=== PATIENT | female | born 1990 | race Caucasian/White ===

== ENCOUNTER 2017-03-03 01:30 | Emergency (ER) | payer SELFPAY ==
[~2017-03-03] VITALS: Ht 154.9 cm; Wt 61.2 kg
[~2017-03-03 01:30] MED LIST: CODE-54 PO; FERR325C PO; IBP600T1 PO; NAPR-243 PO; ONDAN4ODT PO; OXYC10TA63; PREN1TAB71 PO
--- OUTSIDE RECORDS SUMMARY | 2017-03-03 01:39 | XMS REPORT ---
Author Author LZIZETH SMALL Organization [facility] Address [address] [place] [address] Care Team Providers Care Family Court Counsellor Name Role Phone JEANCARLOS SMALLNETTE Unavailable PROBLEMS Type Condition ICD9-CM Code ZME07-IS Code Onset Dates Condition Status SNOMED Code Problem Cannabis use disorder, mild, abuse F12.10 Active 54514758 Problem Alcohol use disorder, moderate, dependence F10.20 Active 979084439 Problem Moderate episode of recurrent major depressive disorder F33.1 Active 504688254 Problem Anxiety state, unspecified F41.1 Active [id number] ALLERGIES Substance Reaction Event Type Date Status N.K.D.A. Unknown Non Drug Allergy Jun, Unknown SOCIAL HISTORY No smoking Hx information available PLAN OF CARE Activity Details Follow Up 3 Weeks Reason:lab and depresion VITAL SIGNS Weight 133 lbs 2016-06-27 Temperature 97.3 degrees Fahrenheit 2016-06-27 Heart Rate 84 bpm 2016-06-27 Respiratory Rate 18 2016-06-27 Blood pressure systolic 126 mmHg 2016-06-27 Blood pressure diastolic 76 mmHg 2016-06-27 MEDICATIONS Medication Instructions Dosage Frequency Start Date End Date Duration Status Clonidine HCl 0.1 MG Orally Once a day 1 tablet at bedtime 24h Jun, 30 day(s) Active Celexa 20 mg Orally Once a day 1 tablet 24h Jun, 30 day(s) Active RESULTS No Results PROCEDURES Procedure Date Ordered Related Diagnosis Body Site Office Visit, Est Pt., Level 3 Jun 27, 2016 IMMUNIZATIONS No Known Immunizations
--- OUTSIDE RECORDS SUMMARY | 2017-03-03 01:39 | XMS REPORT ---
Author Author JOSE F YOUNG Organization [facility] Address [address] [place] [address] Care Team Providers Care Nurse Transition Name Role Phone JOSE F YOUNG Unavailable PROBLEMS Type Condition ICD9-CM Code URW75-HN Code Onset Dates Condition Status SNOMED Code Problem Alcohol use disorder, moderate, dependence F10.20 Active 903167344 Problem Cannabis use disorder, mild, abuse F12.10 Active 74378531 Problem Moderate episode of recurrent major depressive disorder F33.1 Active 422900455 Problem Anxiety state, unspecified F41.1 Active [id number] ALLERGIES Unknown Allergies SOCIAL HISTORY No smoking Hx information available PLAN OF CARE Activity Details Follow Up prn Reason:anxiety VITAL SIGNS MEDICATIONS Unknown Medications RESULTS No Results PROCEDURES Procedure Date Ordered Related Diagnosis Body Site Psychotherapy, patient &/family, 30 minutes, established patient Jun 04, 2016 IMMUNIZATIONS No Known Immunizations
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
[2017-03-03] MEDS ORDERED: IBUP-1780 PO (02:50)
[2017-03-03] MEDS ORDERED: IBUPROFEN 800 MG (MOTRIN) TAB PO ONE (03:00)
[2017-03-03 03:01] VITALS: BP 138/99
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
== END 2017-03-03 03:01 | disposition home or self-care (01) ==
LOC: EDUNIT# 01:30 → ER 01:34
DX: S16.1XXA Strain of muscle, fascia and tendon at neck level, initial encounter; R68.84 Jaw pain; F41.9 Anxiety disorder, unspecified; Y09 Assault by unspecified means; F32.9 Major depressive disorder, single episode, unspecified
CPT/HCPCS: 70486; 72125; 99283

== ENCOUNTER 2019-05-24 02:09 | Inpatient (IN) | payer SELFPAY ==
[~2019-05-24] VITALS: Ht 157.9 cm; Wt 61.3 kg
[2019-05-24] VITALS (12 sets, daily range): BP systolic 120–175; BP diastolic 81–126
[~2019-05-24 02:09] MED LIST changes: +IBUP-1780 PO
[2019-05-24 02:42] LABS: BASOPHILS # (AUTO) 0.1 10^3/uL (0.0-0.1); BASOPHILS % (AUTO) 1 % (0-10); EOSINOPHILS % (AUTO) 0 % (0-10); HEMATOCRIT 43 % (35-52); HEMOGLOBIN 14.9 G/DL (11.5-16.0); LYMPHOCYTES # (AUTO) 2.7 X 10^3 (1.0-4.0); LYMPHOCYTES % (AUTO) 23 % (12-44); MEAN CORPUSCULAR HEMOGLOBIN 31 PG (25-34); MEAN CORPUSCULAR HGB CONC 34 G/DL (32-36); MEAN CORPUSCULAR VOLUME 89 FL (80-99); MEAN PLATELET VOLUME 10.5 FL (7.4-10.4); MONOCYTES # (AUTO) 0.7 X 10^3 (0.0-1.0); MONOCYTES % (AUTO) 6 % (0-12); NEUTROPHILS # (AUTO) 8.3 X 10^3 (1.8-7.8); NEUTROPHILS % (AUTO) 71 % (42-75); PLATELET COUNT 369 10^3/uL (130-400); RED CELL DISTRIBUTION WIDTH 12.9 % (10.0-14.5); WHITE BLOOD COUNT 11.7 10^3/uL (4.3-11.0)
[2019-05-24] MEDS ORDERED: LORazepam INJ 2 MG/ML (ATIVAN) VIAL IVP ONE (02:45)
[2019-05-24 02:53] LABS: INR 0.9 (0.8-1.4); PROTHROMBIN TIME PATIENT 12.6 SEC (12.2-14.7)
[2019-05-24 03:01] LABS: ALANINE AMINOTRANSFERASE 26 U/L (0-55); ALBUMIN 4.6 GM/DL (3.2-4.5); ALKALINE PHOSPHATASE 95 U/L (40-136); BILIRUBIN,TOTAL 0.5 MG/DL (0.1-1.0); BUN/CREATININE RATIO 12; CALCIUM 9.6 MG/DL (8.5-10.1); CARBON DIOXIDE 21 MMOL/L (21-32); CHLORIDE 104 MMOL/L (98-107); CREATININE SERUM 0.85 MG/DL (0.60-1.30); GFR ESTIMATED > 60; GLUCOSE 101 MG/DL (70-105); MAGNESIUM 1.8 MG/DL (1.6-2.4); POTASSIUM 3.4 MMOL/L (3.6-5.0); SODIUM 141 MMOL/L (135-145); TOTAL PROTEIN 7.3 GM/DL (6.4-8.2)
[2019-05-24 03:10] LABS: AMPHETAMINE SCREEN, URINE NEGATIVE (NEGATIVE); BARBITURATE SCREEN URINE NEGATIVE (NEGATIVE); BENZODIAZEPINES SCREEN URINE POSITIVE (NEGATIVE); CANNABINOID SCREEN, URINE POSITIVE (NEGATIVE); COCAINE SCREEN URINE NEGATIVE (NEGATIVE); METHADONE STAT NEGATIVE (NEGATIVE); METHAMPHETAMINE SCREEN URINE S NEGATIVE (NEGATIVE); OPIATE SCREEN URINE NEGATIVE (NEGATIVE); OXYCODONE STAT NEGATIVE (NEGATIVE); PROPOXYPHENE STAT NEGATIVE (NEGATIVE); TRICYCLIC ANTIDEPRESSANTS SCRE NEGATIVE (NEGATIVE)
[2019-05-24] MEDS ORDERED: ASPIRIN 81 MG CHEW (CHILDREN'S ASA) PO ONE (03:30)
[2019-05-24] MEDS: NITROGLYCERIN 0.4 MG SL TABS BTL 25'S SL PRN ×2 (03:54→04:07)
--- NOTE | 2019-05-24 04:06 | NUR ---
Pain re-assessed at this time. Pt reports her pain is resolved after 1 NTG
[2019-05-24] MEDS ORDERED: meTOprolol 5 MG/5 ML (LOPRESSOR) VIAL IV ONE (04:45)
--- NOTE | 2019-05-24 04:50 | ED Chest Pain ---
General Chief Complaint: Chest Pain Stated Complaint: CP, ARM & BACK PAIN,LIGHT HEADED,DIZZY Nursing Triage Note: Pt ambulates to [facility] 5 with c/o medial chest pain that radiates to upper back, dizziness, N/V that started approx 2330 last night. Pt is in sinus rhythm on arrival. Pt denies any SOB, fever/chills. Pt does report smoking marijuana tonight. Nursing Sepsis Screen: No Definite Risk Source: patient Exam Limitations: no limitations History of Present Illness Date Seen by Provider: May 24, 2019 Time Seen by Provider: 02:21 Initial Comments This 28-year-old young lady presents to the emergency room with complaints of central chest pain radiating down her arms and into her back that started around midnight. She describes the pain as a tightness and burning. She denies any other prior episodes. She also reports an episode of emesis shortly after symptoms started. She admits to drinking alcohol around 20:00 and smoking marijuana last night. She denies any known cardiopulmonary problems. She has markedly hypertensive on assessment. She denies any history of hypertension. Allergies and Home Medications Allergies Coded Allergies: No Known Drug Allergies (Unverified , 11/20/10) Home Medications Ibuprofen 800 Mg Tablet, 800 MG PO Q8H PRN for PAIN Prescribed by: DASH GUZMÁN on 03/03/17 0250 Patient Home Medication List Home Medication List Reviewed: Yes Review of Systems Review of Systems Constitutional: no symptoms reported EENTM: No Symptoms Reported Respiratory: No Symptoms Reported Cardiovascular: See HPI Gastrointestinal: See HPI Genitourinary: No Symptoms Reported Musculoskeletal: no symptoms reported Skin: no symptoms reported Psychiatric/Neurological: No Symptoms Reported Endocrine: No Symptoms Reported Hematologic/Lymphatic: No Symptoms Reported Past Ootedmf-Hazcfp-Vjbmxp Hx Past Med/Social Hx: Reviewed and Corrections made Patient Social History Alcohol Use: Occasionally Uses Number of Drinks Today: 0 Alcohol Beverage of Choice: Whiskey Recreational Drug Use: Yes (THC) Smoking Status: Never a Smoker Recent Foreign Travel: No Contact w/Someone Who Travel: No Recent Infectious Disease Expo: No Recent Hopitalizations: No Physical Abuse: No Sexual Abuse: No Mistreated: No Fear: No Immunizations Up To Date Tetanus Booster (TDap): Less than 5yrs Seasonal Allergies Seasonal Allergies: No Past Medical History Surgeries: No Respiratory: No Cardiac: No Neurological: No : No Last Menstrual Period: May 09, 2019 Reproductive Disorders: No Female Reproductive Disorders: Denies Genitourinary: No Gastrointestinal: No Musculoskeletal: No Endocrine: No HEENT: No Cancer: No Psychosocial: Yes Anxiety, Depression Integumentary: No Blood Disorders: No Adverse Reaction/Blood Tranf: No Family Medical History Heart Disease (in her grandparents) Physical Exam Vital Signs Vital Signs - First Documented 05/24/19 02:26 Temp 36.6 Pulse 74 Resp 20 B/P (MAP) 180/120 (140) Pulse Ox 99 O2 Delivery Room Air Capillary Refill : Less Than 3 Seconds Height, Weight, BMI Height: 5'1.00" Weight: 135lbs. oz. 61.375547wd; 26.00 BMI Method:Stated General Appearance: No Apparent Distress, WD/WN, Anxious (mildly) HEENT: PERRL/EOMI, Normal ENT Inspection Neck: Normal Inspection Respiratory: Chest Non Tender, Lungs Clear, Normal Breath Sounds, No Accessory Muscle Use, No Respiratory Distress Cardiovascular: Regular Rate, Rhythm, No Edema, No Murmur, Normal Peripheral Pulses Gastrointestinal: Normal Bowel Sounds, Non Tender, Soft Extremity: Normal Capillary Refill, Normal Inspection, Non Tender, No Calf Tenderness, No Pedal Edema Neurologic/Psychiatric: Alert, Oriented x3, No Motor/Sensory Deficits, head cleaning porter II- XII Norm as Tested, Other (mildly anxious) Skin: Normal Color, Warm/Dry Progress/Results/Core Measures Results/Orders Lab Results Laboratory Tests Test 05/24/19 02:24 05/24/19 02:52 05/24/19 04:45 Range/Units White Blood Count 11.7 H 4.3-11.0 10^3/uL Red Blood Count 4.86 4.35-5.85 10^6/uL Hemoglobin 14.9 11.5-16.0 G/DL Hematocrit 43 35-52 % Mean Corpuscular Volume 89 80-99 FL Mean Corpuscular Hemoglobin 31 25-34 PG Mean Corpuscular Hemoglobin Concent 34 32-36 G/DL Red Cell Distribution Width 12.9 10.0-14.5 % Platelet Count 369 130-400 10^3/uL Mean Platelet Volume 10.5 H 7.4-10.4 FL Neutrophils (%) (Auto) 71 42-75 % Lymphocytes (%) (Auto) 23 12-44 % Monocytes (%) (Auto) 6 0-12 % Eosinophils (%) (Auto) 0 0-10 % Basophils (%) (Auto) 1 0-10 % Neutrophils # (Auto) 8.3 H 1.8-7.8 X 10^3 Lymphocytes # (Auto) 2.7 1.0-4.0 X 10^3 Monocytes # (Auto) 0.7 0.0-1.0 X 10^3 Eosinophils # (Auto) 0.0 0.0-0.3 10^3/uL Basophils # (Auto) 0.1 0.0-0.1 10^3/uL Prothrombin Time 12.6 12.2-14.7 SEC INR Comment 0.9 0.8-1.4 Activated Partial Thromboplast Time 26 24-35 SEC Sodium Level 141 135-145 MMOL/L Potassium Level 3.4 L 3.6-5.0 MMOL/L Chloride Level 104 98-107 MMOL/L Carbon Dioxide Level 21 21-32 MMOL/L Anion Gap 16 H 5-14 MMOL/L Blood Urea Nitrogen 10 7-18 MG/DL Creatinine 0.85 0.60-1.30 MG/DL Estimat Glomerular Filtration Rate > 60 BUN/Creatinine Ratio 12 Glucose Level 101 70-105 MG/DL Calcium Level 9.6 8.5-10.1 MG/DL Corrected Calcium 8.5-10.1 MG/DL Magnesium Level 1.8 1.6-2.4 MG/DL Total Bilirubin 0.5 0.1-1.0 MG/DL Aspartate Amino Transf (AST/SGOT) 21 5-34 U/L Alanine Aminotransferase (ALT/SGPT) 26 0-55 U/L Alkaline Phosphatase 95 40-136 U/L Myoglobin 35.2 10.0-92.0 NG/ML Troponin I 0.337 *H <0.028 NG/ML Total Protein 7.3 6.4-8.2 GM/DL Albumin 4.6 H 3.2-4.5 GM/DL Serum Test, Qualitative NEGATIVE NEGATIVE Serum Alcohol < 10 <10 MG/DL Urine Opiates Screen NEGATIVE NEGATIVE Urine Oxycodone Screen NEGATIVE NEGATIVE Urine Methadone Screen NEGATIVE NEGATIVE Urine Propoxyphene Screen NEGATIVE NEGATIVE Urine Barbiturates Screen NEGATIVE NEGATIVE Ur Tricyclic Antidepressants Screen NEGATIVE NEGATIVE Urine Phencyclidine Screen NEGATIVE NEGATIVE Urine Amphetamines Screen NEGATIVE NEGATIVE Urine Methamphetamines Screen NEGATIVE NEGATIVE Urine Benzodiazepines Screen POSITIVE H NEGATIVE Urine Cocaine Screen NEGATIVE NEGATIVE Urine Cannabinoids Screen POSITIVE H NEGATIVE My Orders Orders - BLAYNE DE LEON MD Cbc With Automated Diff (05/24/19 02:21) Magnesium (05/24/19 02:21) Ekg Tracing (05/24/19 02:21) Comprehensive Metabolic Panel (05/24/19 02:21) Myoglobin Serum (05/24/19 02:21) Protime With Inr (05/24/19 02:21) Partial Thromboplastin Time (05/24/19 02:21) O2 (05/24/19 02:21) Monitor-Rhythm Ecg Trace Only (05/24/19 02:21) Lipid Panel (05/25/19 06:00) Ed Iv/Invasive Line Start (05/24/19 02:21) Chest Pa/Lat (2 View) (05/24/19 02:21) Hcg,Qualitative Serum (05/24/19 02:21) Troponin I (05/24/19 02:21) Drug Screen Stat (Urine) (05/24/19 02:32) Alcohol (05/24/19 02:21) Lorazepam Injection (Ativan Injection) (05/24/19 02:45) Troponin I (05/24/19 04:30) Aspirin Chewable Tablet (Baby Aspirin Ch (05/24/19 03:30) Nitroglycerin 0.4 Mg Btl 25's (Nitrostat (05/24/19 03:30) Metoprolol Tartrate Injection (Lopressor (05/24/19 04:45) Lipid Panel (05/24/19 04:45) Alcohol (05/24/19 04:54) Medications Given in ED Current Medications Medications Dose Ordered Sig/Bryan Route Start Time Stop Time Status Last Admin Dose Admin Aspirin 324 mg ONCE ONCE PO 05/24/19 03:30 05/24/19 03:31 DC 05/24/19 03:25 324 MG Lorazepam 0.5 mg ONCE ONCE IVP 05/24/19 02:45 05/24/19 02:46 DC 05/24/19 02:57 0.5 MG Metoprolol Tartrate 5 mg ONCE ONCE IV 05/24/19 04:45 05/24/19 04:46 DC 05/24/19 04:41 5 MG Nitroglycerin 0.4 mg UD PRN SL 05/24/19 03:30 05/24/19 04:07 0.4 MG Vital Signs/I&O 05/24/19 05/24/19 02:26 02:32 Temp 36.6 Pulse 74 Resp 20 B/P (MAP) 180/120 (140) Pulse Ox 99 O2 Delivery Room Air Room Air Blood Pressure Mean: 140 POS Progress Progress Note : Time: 04:49 Progress Note Patient was given Ativan for anxiety and hypertension. This brought her pain down from 7/10 to 5/10. She was then given aspirin and nitroglycerin. Nitroglycerin completely relieved her pain. She had a slight elevation in troponin. A 2 hour troponin was ordered. Case was discussed with Dr. Avila who agrees admission is appropriate. Nitroglycerin significantly improved her blood pressure. Dr. Avila requested Lopressor be administered. Initial ECG Impression Date: May 24, 2019 Initial ECG Impression Time: 02:17 Initial ECG Rate: 77 Initial ECG Rhythm: Normal Sinus Initial ECG Intervals: Normal Initial ECG Impression: Normal Comment Normal sinus rhythm with no ST elevation or depression. No abnormal intervals or axis deviation. Diagnostic Imaging Diagonstic Imaging: Xray Plain Films/CT/US/NM/MRI: chest Comments Two-view chest x-ray viewed by me. Report not yet available. No acute ab normalities appreciated. Departure Communication (Admissions) Time/Spoke to Admitting Phy: 04:40 Dr. Prince Time/Spoke to Consulting Phy: 04:30 Dr. Avila Impression Primary Impression: Chest pain Qualified Codes: R07.9 - Chest pain, unspecified Additional Impressions: Elevated troponin Hypertension Qualified Codes: I10 - Essential (primary) hypertension Disposition: 09 ADMITTED INPATIENT Condition: Improved Admissions Decision to Admit Reason: Admit from ER (General) Decision to Admit/Date: May 24, 2019 Time/Decision to Admit Time: 04:30 Departure-Patient Inst. Referrals: [facility] (PCP/Family) Primary Care Physician BLAYNE DE LEON MD May 24, 2019 04:50 POS
[2019-05-24 05:09] LABS: CHOLESTEROL 145 MG/DL (< 200); HDL CHOLESTEROL 48 MG/DL (40-60); TRIGLYCERIDES 129 MG/DL (<150); VLDL CHOLESTEROL 26 MG/DL (5-40)
[2019-05-24] MEDS ORDERED: PATIENT MAY USE OWN MEDS, ALL PO SCH ×2 (05:45→08:00)
--- NOTE | 2019-05-24 05:58 | Diagnostic Imaging Report ---
INDICATION: Chest pain with radiation to the back. Dizziness nausea and vomiting.. TECHNIQUE: Two view chest 3:10 AM CORRELATION STUDY: 11/21/2010 FINDINGS: The heart size, mediastinal configuration and pulmonary vasculature are within normal limits. The lungs are clear with no consolidating infiltrate. There is no significant pleural effusion or pneumothorax. Visualized osseous structures are unremarkable. IMPRESSION: 1. Negative for acute abnormality of the chest. Dictated by: Dictated on workstation # [id number]
[2019-05-24] MEDS ORDERED: HEParin DRIP 25000 UNIT/500ML 500 ML IV ONE (06:09)
[2019-05-24] MEDS ORDERED: HEParin 1000 UNIT/ML (10ML VIAL) FOR BOLUS IV ONE (06:09)
[2019-05-24] MEDS ORDERED: CATHETER FLUSH 10 ML SYR IV PRN (06:15)
[2019-05-24] MEDS ORDERED: NITROGLYCERIN 0.4 MG SL TABS BTL 25'S SL PRN (06:15)
[2019-05-24] MEDS ORDERED: ONDANSETRON 4 MG/2 ML (SDV) Z0FRAN IV PRN (06:15)
[2019-05-24] MEDS ORDERED: morphine INJ 4 MG/ML 1 ML (VIAL/SYRINGE) IV PRN (06:15)
[2019-05-24] MEDS ORDERED: LIDOCAINE 1% INJ 20 ML 20 ML VIAL ONE ×2 (06:56→06:59)
[2019-05-24] MEDS ORDERED: NITRO DRIP 25000 MCG/D5W 0 ML IV ONE (06:56)
[2019-05-24] MEDS ORDERED: HEParin 1000 UNIT/ML (10ML VIAL) FOR BOLUS ONE (06:56)
[2019-05-24] MEDS ORDERED: HEParin (CATH LAB) 2,000 ML IV ONE (06:56)
[2019-05-24] MEDS ORDERED: MIDAZOLAM 5 MG/5 ML (VERSED) VIAL ONE (06:56)
[2019-05-24] MEDS ORDERED: fentaNYL INJECTION 100 MCG/2 ML AMP ONE (06:56)
--- NOTE | 2019-05-24 07:11 | Consultation-Cardiology ---
HPI-Cardiology Cardiology Consultation Date of Consultation 05/24/19 Date of Admission Time Seen by Provider: 07:07 Indication: Chest pain HPI 28 years old lady with family history of heart disease, was in her usual state of health when she started having retrosternal chest pain radiating to both shoulder done to both arms associated with nausea and vomiting once then came into the emergency room with severely hypertensive. Given sublingual nitroglycerin with relief of her chest pain. No further episodes of chest pain were reported her initial troponin was mildly elevated second troponin was significantly higher. Denied any similar episode in the past. No previous cardiac history. Home Medications & Allergies Allergies: Coded Allergies: No Known Drug Allergies (Unverified , 11/20/10) Home Medication List Reviewed: Yes FLB-Uzbozx-Kwispb Hx Patient Social History Marital Status: Employed/Student: employed Alcohol Use: Occasionally Uses Recreational Drug Use: Yes (THC) Smoking Status: Never a Smoker Former smoker/When Quit: Jun 23, 2012 Recent Foreign Travel: No Recent Infectious Disease Expo: No Recent Hopitalizations: No Immunizations Up To Date Tetanus Booster (TDap): Less than 5yrs Past Medical History No significant past history Family Medical History Significant Family History: Heart Disease (in her grandparents) Family Medical Hx Family history of stroke and hypertension Review of Systems-General Review of Systems Constitutional: no symptoms reported, see HPI EENTM: see HPI, no symptoms reported Respiratory: no symptoms reported, see HPI Cardiovascular: see HPI Gastrointestinal: no symptoms reported, see HPI Genitourinary: no symptoms reported, see HPI Musculoskeletal: no symptoms reported, see HPI Skin: no symptoms reported, see HPI Psychiatric/Neurological: No Symptoms Reported, See HPI Reviewed Test Results Reviewed Test Results Lab Laboratory Tests Test 05/24/19 02:24 05/24/19 02:52 05/24/19 04:45 Range/Units White Blood Count 11.7 H 4.3-11.0 10^3/uL Red Blood Count 4.86 4.35-5.85 10^6/uL Hemoglobin 14.9 11.5-16.0 G/DL Hematocrit 43 35-52 % Mean Corpuscular Volume 89 80-99 FL Mean Corpuscular Hemoglobin 31 25-34 PG Mean Corpuscular Hemoglobin Concent 34 32-36 G/DL Red Cell Distribution Width 12.9 10.0-14.5 % Platelet Count 369 130-400 10^3/uL Mean Platelet Volume 10.5 H 7.4-10.4 FL Neutrophils (%) (Auto) 71 42-75 % Lymphocytes (%) (Auto) 23 12-44 % Monocytes (%) (Auto) 6 0-12 % Eosinophils (%) (Auto) 0 0-10 % Basophils (%) (Auto) 1 0-10 % Neutrophils # (Auto) 8.3 H 1.8-7.8 X 10^3 Lymphocytes # (Auto) 2.7 1.0-4.0 X 10^3 Monocytes # (Auto) 0.7 0.0-1.0 X 10^3 Eosinophils # (Auto) 0.0 0.0-0.3 10^3/uL Basophils # (Auto) 0.1 0.0-0.1 10^3/uL Prothrombin Time 12.6 12.2-14.7 SEC INR Comment 0.9 0.8-1.4 Activated Partial Thromboplast Time 26 24-35 SEC Sodium Level 141 135-145 MMOL/L Potassium Level 3.4 L 3.6-5.0 MMOL/L Chloride Level 104 98-107 MMOL/L Carbon Dioxide Level 21 21-32 MMOL/L Anion Gap 16 H 5-14 MMOL/L Blood Urea Nitrogen 10 7-18 MG/DL Creatinine 0.85 0.60-1.30 MG/DL Estimat Glomerular Filtration Rate > 60 BUN/Creatinine Ratio 12 Glucose Level 101 70-105 MG/DL Calcium Level 9.6 8.5-10.1 MG/DL Corrected Calcium 8.5-10.1 MG/DL Magnesium Level 1.8 1.6-2.4 MG/DL Total Bilirubin 0.5 0.1-1.0 MG/DL Aspartate Amino Transf (AST/SGOT) 21 5-34 U/L Alanine Aminotransferase (ALT/SGPT) 26 0-55 U/L Alkaline Phosphatase 95 40-136 U/L Myoglobin 35.2 10.0-92.0 NG/ML Troponin I 0.337 *H 1.102 *H <0.028 NG/ML Total Protein 7.3 6.4-8.2 GM/DL Albumin 4.6 H 3.2-4.5 GM/DL Serum Test, Qualitative NEGATIVE NEGATIVE Serum Alcohol < 10 < 10 <10 MG/DL Urine Opiates Screen NEGATIVE NEGATIVE Urine Oxycodone Screen NEGATIVE NEGATIVE Urine Methadone Screen NEGATIVE NEGATIVE Urine Propoxyphene Screen NEGATIVE NEGATIVE Urine Barbiturates Screen NEGATIVE NEGATIVE Ur Tricyclic Antidepressants Screen NEGATIVE NEGATIVE Urine Phencyclidine Screen NEGATIVE NEGATIVE Urine Amphetamines Screen NEGATIVE NEGATIVE Urine Methamphetamines Screen NEGATIVE NEGATIVE Urine Benzodiazepines Screen POSITIVE H NEGATIVE Urine Cocaine Screen NEGATIVE NEGATIVE Urine Cannabinoids Screen POSITIVE H NEGATIVE Triglycerides Level 129 <150 MG/DL Cholesterol Level 145 < 200 MG/DL LDL Cholesterol Direct 83 1-129 MG/DL VLDL Cholesterol 26 5-40 MG/DL HDL Cholesterol 48 40-60 MG/DL Physical Exam Physical Exam Vital Signs Vital Signs - First Documented 05/24/19 02:26 Temp 36.6 Pulse 74 Resp 20 B/P (MAP) 180/120 (140) Pulse Ox 99 O2 Delivery Room Air Capillary Refill : Less Than 3 Seconds Height, Weight, BMI Height: 5'1.00" Weight: 135lbs. oz. 61.643630dl; 24.58 BMI Method:Stated General Appearance: No Apparent Distress, WD/WN, Anxious (mildly) Eyes: Bilateral Eye Normal Inspection, Bilateral Eye PERRL, Bilateral Eye EOMI HEENT: PERRL/EOMI, Normal ENT Inspection Neck: Normal Inspection Respiratory: Chest Non Tender, Lungs Clear, Normal Breath Sounds, No Accessory Muscle Use, No Respiratory Distress Cardiovascular: Regular Rate, Rhythm, No Edema, No Murmur, Normal Peripheral Pulses Gastrointestinal: Normal Bowel Sounds, Non Tender, Soft Back: Normal Inspection, No CVA Tenderness, No Vertebral Tenderness Extremity: Normal Capillary Refill, Normal Inspection, Non Tender, No Calf Tenderness, No Pedal Edema Neurologic/Psychiatric: Alert, Oriented x3, No Motor/Sensory Deficits, methods analyst data processing II- XII Norm as Tested, Other (mildly anxious) Skin: Normal Color, Warm/Dry Lymphatic: No Adenopathy A/P-Cardiology Admission Diagnosis Unstable angina Non-ST elevation myocardial infarction Coronary artery disease Hypertension Assessment/Plan Unstable angina, non-ST elevation myocardial infarction, chest pain responsive to nitroglycerin, no acute EKG changes, elevated troponin first set was 0.33 second set 1.1. I will proceed with cardiac catheterization possible PTCA Severe hypertension, hypertensive urgency. We'll start beta blockers and monitor Family history of atherosclerosis Questionable hyperlipidemia I will evaluate lipid profile History of marijuana use. Educated on avoiding marijuana NURIA KIDD MD May 24, 2019 07:11 POS
--- NOTE | 2019-05-24 07:16 | Cardiac Procedure Note-CS/ASA ---
Pre-Procedure Note Pre-Op Procedure Note H&P Reviewed The H&P was reviewed, patient examined and no changes noted. Date H&P Reviewed: May 24, 2019 Time H&P Reviewed: 07:15 Conscious Sedation Pre-Proced Time 07:15 ASA Score 3 For ASA 3 and 4: Consider anesthesia and medical clearance. Also, for patients with a history of failed moderate sedation consider anesthesia. Airway Lungs Heart ASA score ASA 1: a normal healthy patient ASA 2: a patient with a mild systemic disease (mid diabetes, controlled hypertension, obesity x ASA 3: a patient with a severe systemic disease that limits activity (angina, COPD, prior Myocardial infarction) ASA 4: a patient with an incapacitating disease that is a constant threat to life (CHF, renal failure) ASA 5: a moribund patient not expected to survive 24 hrs. (ruptured aneurysm) ASA 6: a declared brain- patient whose organs are being harvested. For emergent operations, add the letter E after the classification Mallampati Classification Grade 3 Sedation Plan Analgesia, Amnesia, Plan communicated to team members, Discussed options with patient/fam, Discussed risks with patient/fam The patient is an appropriate candidate to undergo the planned procedure, sedation, and anesthesia. The patient immediately re-assessed prior to indication. NURIA KIDD MD May 24, 2019 07:16 POS
--- NOTE | 2019-05-24 07:25 | NUR ---
Patient off floor to dock or pier laborer at this time.
[2019-05-24] MEDS ORDERED: NS IV 1000 ML 1,000 ML ONE (07:29)
[2019-05-24] MEDS ORDERED: meTOprolol 5 MG/5 ML (LOPRESSOR) VIAL ONE (07:51)
--- NOTE | 2019-05-24 08:05 | Cardiac Cath Report ---
Cardiac Cath Report Physician (s)/Digital Media Analyst (s) Physician NURIA KIDD MD Pre-Procedure Diagnosis Pre-Procedure Diagnosis: NSTMI Post-Procedure Note Procedure Start Date: May 24, 2019 Name of Procedure: [facility] LV Gram Aortic arch angiogram Abdominal aortogram Findings/Procedure Note PROCEDURE NOTE: 28-year-old female admitted with acute chest pain, had elevation in troponin level, second troponin was more elevated. Has severe hypertension, I recomme nded cardiac catheterization, did coronary angiogram and left ventriculogram done a evaluated the aorta with the aortic arch angiogram abdominal aortogram due to the severe hypertension and elevated troponin and chest pain. After explaining the procedure to the patient, all pros and cons were explained, all questions were answered. The patient signed the consent and then she was placed on the cardiac catheterization laboratory. Groin was prepped SL fashion local anesthesia was used. Sheath placed in the right femoral artery. Alba right and left catheter were used to access the coronary system. Pigtail was used to access the left ventricular cavity. Left ventriculogram was done Aortic arch angiogram was done, abdominal aortogram was done At the end of the procedure the sheath was removed. Closure device was used FINDINGS: Hemodynamics LV 192/18, end-diastolic pressure of 18 Aorta 178/121 mean of 147 ANATOMY: Left Main is free of obstructive disease Left Anterior Descending is free of obstructive disease Left Circumflex is free of obstructive disease Right Coronory Artery is free of obstructive disease LV Gram was done showing normal left ventricular size and systolic function, ejection fraction 60 percent Aorta evaluation done with aortic arch and Gram and abdominal aortogram, the aortic arch is normal in size, no dissection or aneurysm, normal origin of the innominate artery (carotid artery and left subclavian arteries. Abdominal aortogram showed small abdominal aorta and no aneurysm or dissection, normal renal arteries, normal SMA and OSVALDO. CONCLUSION: 1. Normal coronary system 2. Normal left ventricular size and systolic function estimated ejection fraction 60 percent 3. Normal aortic arch and great vessels of the neck 4. Normal abdominal aorta and renal arteries DISCUSSION AND RECOMMENDATION: patient had elevated troponin and chest pain probably due to malignant hypertension, she received 5 mg of IV Lopressor in the catheter lab and started her on Lopressor and amlodipine, I will evaluate 2-D echo and planning to add RUSS inhibitor if needed Anesthesia Type: Conscious Sedation Estimated blood loss (mL): 20 ml Contrast Amount: 53 ml Total Radiation Dose: 192 mGy Post-Procedure Diagnosis Post-operative diagnosis: Type II myocardial infarction Malignant hypertension Chest pain NURIA KIDD MD May 24, 2019 08:05 POS
[2019-05-24] MEDS: NS IV 1000 ML 1,000 ML IV SCH ×2 (08:15→16:03)
[2019-05-24] MEDS: ASPIRIN E.C. 81 MG (ECOTRIN) TAB PO SCH (08:41)
[2019-05-24] MEDS: amLODIPine 5 MG (NORVASC) TAB PO SCH (08:41)
[2019-05-24] MEDS ORDERED: ASPIRIN E.C. 81 MG (ECOTRIN) TAB PO SCH (09:00)
--- NOTE | 2019-05-24 12:45 | NUR ---
PATIENT TAKEN WITH THE MONITOR UP TO ROOM 405 PER HER HOSPITAL BED. VSS. DENIES ANY DISCOMFORT. REPORT TO TAMERA ANDRADE. NO SIGNS OF BLEEDING. PATIENT HAS HAD 120 CC OF WATER TO DRINK. PATIENT HAS NOT VOIDED. PATIENT RECEIVED 400 CC OF IV FLUID WHILE IN SDC.
[2019-05-24] MEDS: CATHETER FLUSH 10 ML SYR IV SCH ×2 (14:00→21:30)
--- NOTE | 2019-05-24 19:20 | History & Physical ---
HPI History of Present Illness: 28 yo F that presented to ER with chest pain. States that it started today when she was up walking around. Never had anything like this before. Pain improved in ER with rest and nitro. Cardiology was consulted from ER. + family history of CAD. Denies any other medical problems. Source: patient, family Exam Limitations: no limitations Date seen by provider: May 24, 2019 Time Seen by Provider: 15:00 Attending Physician Juana Prince MD PCP Center/[facility] [place] Consult Date of Admission May 24, 2019 at 04:42 Home Medications Home Medications Reviewed patient Home Medication Reconciliation performed by pharmacy medication reconciliations optics manufacturing technician and/or nursing. Patients Allergies have been reviewed. Allergies Coded Allergies: No Known Drug Allergies (Unverified , 11/20/10) KOQ-Amodyq-Yeklqf Hx Patient Social History Marrital Status: Employed/Student: employed Alcohol Use: Occasionally Uses Recreational Drug Use: Yes (THC) Smoking Status: Never a Smoker Former smoker/When Quit: Jun 23, 2012 Recent Foreign Travel: No Contact w/other who traveled: No Recent Hopitalizations: No Recent Infectious Disease Expo: No Immunizations Up To Date Tetanus Booster (TDap): Less than 5yrs Past Medical History None Family Medical History Significant Family History: Heart Disease (in her grandparents) Review of Systems (CHC) Constitutional: No chills; diaphoresis; No dizziness, No fever EENTM: no symptoms reported Respiratory: No cough; dyspnea on exertion Cardiovascular: chest pain; No edema, No palpitations Gastrointestinal: no symptoms reported; No abdominal pain, No constipation, No diarrhea, No loss of appetite, No nausea, No vomiting Genitourinary: no symptoms reported; No dysuria, No frequency, No hematuria : No Musculoskeletal: other (radiation to both arms) Skin: no symptoms reported; No lesions, No rash Psychiatric/Neurological: No Symptoms Reported; Denies Anxiety, Denies Depressed, Denies Headache, Denies Numbness Reviewed Test Results Reviewed Test Results Lab Laboratory Tests Test 05/24/19 02:20 05/24/19 02:24 05/24/19 02:52 05/24/19 02:54 Range/Units White Blood Count 11.7 H 4.3-11.0 10^3/uL Red Blood Count 4.86 4.35-5.85 10^6/uL Hemoglobin 14.9 11.5-16.0 G/DL Hematocrit 43 35-52 % Mean Corpuscular Volume 89 80-99 FL Mean Corpuscular Hemoglobin 31 25-34 PG Mean Corpuscular Hemoglobin Concent 34 32-36 G/DL Red Cell Distribution Width 12.9 10.0-14.5 % Platelet Count 369 130-400 10^3/uL Mean Platelet Volume 10.5 H 7.4-10.4 FL Neutrophils (%) (Auto) 71 42-75 % Lymphocytes (%) (Auto) 23 12-44 % Monocytes (%) (Auto) 6 0-12 % Eosinophils (%) (Auto) 0 0-10 % Basophils (%) (Auto) 1 0-10 % Neutrophils # (Auto) 8.3 H 1.8-7.8 X 10^3 Lymphocytes # (Auto) 2.7 1.0-4.0 X 10^3 Monocytes # (Auto) 0.7 0.0-1.0 X 10^3 Eosinophils # (Auto) 0.0 0.0-0.3 10^3/uL Basophils # (Auto) 0.1 0.0-0.1 10^3/uL Prothrombin Time 12.6 12.2-14.7 SEC INR Comment 0.9 0.8-1.4 Activated Partial Thromboplast Time 26 24-35 SEC Sodium Level 141 135-145 MMOL/L Potassium Level 3.4 L 3.6-5.0 MMOL/L Chloride Level 104 98-107 MMOL/L Carbon Dioxide Level 21 21-32 MMOL/L Anion Gap 16 H 5-14 MMOL/L Blood Urea Nitrogen 10 7-18 MG/DL Creatinine 0.85 0.60-1.30 MG/DL Estimat Glomerular Filtration Rate > 60 BUN/Creatinine Ratio 12 Glucose Level 101 70-105 MG/DL Calcium Level 9.6 8.5-10.1 MG/DL Corrected Calcium 8.5-10.1 MG/DL Magnesium Level 1.8 1.6-2.4 MG/DL Total Bilirubin 0.5 0.1-1.0 MG/DL Aspartate Amino Transf (AST/SGOT) 21 5-34 U/L Alanine Aminotransferase (ALT/SGPT) 26 0-55 U/L Alkaline Phosphatase 95 40-136 U/L Myoglobin 35.2 10.0-92.0 NG/ML Troponin I 0.337 *H <0.028 NG/ML Total Protein 7.3 6.4-8.2 GM/DL Albumin 4.6 H 3.2-4.5 GM/DL Serum Test, Qualitative NEGATIVE NEGATIVE Serum Alcohol < 10 <10 MG/DL Urine Opiates Screen NEGATIVE NEGATIVE Urine Oxycodone Screen NEGATIVE NEGATIVE Urine Methadone Screen NEGATIVE NEGATIVE Urine Propoxyphene Screen NEGATIVE NEGATIVE Urine Barbiturates Screen NEGATIVE NEGATIVE Ur Tricyclic Antidepressants Screen NEGATIVE NEGATIVE Urine Phencyclidine Screen NEGATIVE NEGATIVE Urine Amphetamines Screen NEGATIVE NEGATIVE Urine Methamphetamines Screen NEGATIVE NEGATIVE Urine Benzodiazepines Screen POSITIVE H NEGATIVE Urine Cocaine Screen NEGATIVE NEGATIVE Urine Cannabinoids Screen POSITIVE H NEGATIVE D-Dimer 0.41 0.00-0.49 UG/ML Test 05/24/19 04:45 Range/Units Troponin I 1.102 *H <0.028 NG/ML Triglycerides Level 129 <150 MG/DL Cholesterol Level 145 < 200 MG/DL LDL Cholesterol Direct 83 1-129 MG/DL VLDL Cholesterol 26 5-40 MG/DL HDL Cholesterol 48 40-60 MG/DL Serum Alcohol < 10 <10 MG/DL Physical Exam-(CHC) Physical Exam Vital Signs VS - Last 72 Hours, by Label POS 05/24/19 05/24/19 05/24/19 05/24/19 02:26 02:32 05:35 05:45 Temp 36.6 36.6 Pulse 74 74 Resp 20 20 B/P (MAP) 180/120 (140) 139/98 (140) Pulse Ox 99 99 O2 Delivery Room Air Room Air Room Air Room Air 05/24/19 05/24/19 05/24/19 05/24/19 06:48 07:00 07:02 07:15 Temp 36.3 Pulse 76 74 77 Resp 18 B/P (MAP) 162/98 Pulse Ox 97 O2 Delivery Room Air Room Air 05/24/19 05/24/19 05/24/19 05/24/19 08:15 08:30 08:45 09:00 Temp 35.9 Pulse 74 70 69 60 Resp 18 16 16 16 B/P (MAP) 163/121 (135) 154/113 (127) 152/117 (129) 141/109 (120) Pulse Ox 99 100 100 99 O2 Delivery Room Air Room Air Room Air Room Air 05/24/19 05/24/19 05/24/19/10/19 09:30 10:00 10:21 11:00 Pulse 75 80 80 75 Resp 18 18 18 B/P (MAP) 136/94 (108) 175/126 (142) 140/98 (112) Pulse Ox 98 100 98 O2 Delivery Room Air Room Air Room Air 05/24/19 05/24/19 05/24/19 05/24/19 12:00 12:55 13:00 16:16 Temp 36.2 36.2 Pulse 87 92 87 87 Resp 18 16 20 B/P (MAP) 120/81 (94) 137/93 (108) 126/85 (99) Pulse Ox 99 94 98 O2 Delivery Room Air Room Air Room Air Capillary Refill : Less Than 3 Seconds General Appearance: WD/WN, no apparent distress HEENT: PERRL/EOMI Neck: non-tender, full range of motion, supple Respiratory: chest non-tender, lungs clear, normal breath sounds, no respiratory distress, no accessory muscle use Cardiovascular: normal peripheral pulses, regular rate, rhythm, no edema, no murmur Gastrointestinal: normal bowel sounds, non tender, soft, no organomegaly Back: normal inspection, no CVA tenderness, no vertebral tenderness Extremities: normal range of motion, non-tender, normal inspection, no pedal edema, no calf tenderness, normal capillary refill Neurologic/Psychiatric: bookkeeping clerk II-XII nml as tested, no motor/sensory deficits, alert, normal mood/affect, oriented x 3 Skin: normal color, warm/dry Lymphatic: no adenopathy Assessment/Plan Assessment/Plan Admission Status: Observation (1) Chest pain Status: Acute Assessment & Plan: - Cardiology consulted, appreciate recommendations, Echo normal, trending troponin Qualifiers: Qualified Codes: R07.9 - Chest pain, unspecified (2) NSTEMI (non-ST elevated myocardial infarction) Status: Acute Assessment & Plan: - Patient 2nd CE was elevated and patient had Cath that was normal, Discussed with Dr Avila and he believes that this is demand ischemia related to elevated blood pressure (3) Hypertension Status: Acute Assessment & Plan: - Started on meds, continue to monitor blood pressure, if controlled in AM will plan to d/c home tomorrow with close f.u Qualifiers: Qualified Codes: I10 - Essential (primary) hypertension (4) Tetrahydrocannabinol (THC) use disorder, mild, abuse Status: Acute Assessment & Plan: - Discussed the need for cessation Clinical Quality Measures DVT/VTE Risk/Contraindication: RFS Level Per Nursing on Admit: 1=Low/No VTE PPX JUANA PRINCE MD May 24, 2019 19:20 POS
--- NOTE | 2019-05-24 19:42 | NUR ---
PT C/O PAIN 10/22 BUT HAD NO MEDS ORDERED FOR MILD-MODERATE PAIN. THIS RN CONTACTED DR. SAMANIEGO AND RECEIVED NEW ORDER. SEE ORDER HISTORY.
[2019-05-24] MEDS ORDERED: ACETAMINOPHEN 500 MG TAB (TYLENOL) PO PRN (19:45)
[2019-05-25 00:12] VITALS: BP 138/93
[2019-05-25] MEDS: NS IV 1000 ML 1,000 ML IV SCH (02:00)
[2019-05-25 04:04] VITALS: BP 131/91
[2019-05-25] MEDS: CATHETER FLUSH 10 ML SYR IV SCH (05:18)
[2019-05-25 05:54] LABS: HEMOGLOBIN 14.6 G/DL (11.5-16.0); MEAN PLATELET VOLUME 10.1 FL (7.4-10.4); RED CELL DISTRIBUTION WIDTH 13.1 % (10.0-14.5); WHITE BLOOD COUNT 7.1 10^3/uL (4.3-11.0)
[2019-05-25 06:08] LABS: BUN/CREATININE RATIO 7; CARBON DIOXIDE 20 MMOL/L (21-32); CHLORIDE 108 MMOL/L (98-107); CHOLESTEROL 182 MG/DL (< 200); CREATININE SERUM 0.81 MG/DL (0.60-1.30); GFR ESTIMATED > 60; GLUCOSE 94 MG/DL (70-105); HDL CHOLESTEROL 53 MG/DL (40-60); POTASSIUM 3.8 MMOL/L (3.6-5.0); SODIUM 141 MMOL/L (135-145); TRIGLYCERIDES 228 MG/DL (<150); VLDL CHOLESTEROL 46 MG/DL (5-40)
[2019-05-25 07:27] VITALS: BP 155/104
[2019-05-25] MEDS: amLODIPine 5 MG (NORVASC) TAB PO SCH (08:04)
[2019-05-25] MEDS: ASPIRIN E.C. 81 MG (ECOTRIN) TAB PO SCH (08:05)
--- NOTE | 2019-05-25 08:58 | Cardiology Progress Note ---
Subjective Date Seen by Provider: May 25, 2019 Time Seen by Provider: 08:55 Subjective/Events-last exam Patient up in bed, no new complaints. Denies any chest pain. Objective-Cardiology Exam Last Set of Vital Signs Vital Signs 05/25/19 05/25/19 07:27 08:15 Temp 36.2 Pulse 70 Resp 18 B/P (MAP) 155/104 (121) Pulse Ox 99 O2 Delivery Room Air Capillary Refill : Less Than 3 Seconds I&O Intake and Output 05/25/19 00:00 Intake Total 1000 ml Output Total 300 ml Balance 700 ml Intake Oral 1000 ml Output Urine Total 300 ml # Voids 4 # Bowel Movements 1 Daily Weight Change No No General: Alert, Oriented X3, Cooperative HEENT: Atraumatic, PERRLA Neck: Supple, No JVD, No Thyromegaly Lungs: Clear to Auscultation, Normal Air Movement Heart: Regular Rate, Normal S1, Normal S2, No Murmurs Abdomen: Normal Bowel Sounds, Soft, No Tenderness, No Hepatosplenomegaly, No Masses Extremities: No Clubbing, No Cyanosis, No Edema, Normal Pulses, No Tenderness/Swelling Skin: No Rashes, No Breakdown, No Significant Lesion Neuro: Normal Gait, Normal Speech, Strength at 5/5 X4 Ext, Normal Tone, Sensation Intact Psych/Mental Status: Mental Status NL, Mood NL Results Lab Laboratory Tests 05/25/19 05:09 05/25/19 05:29 A/P-Cardiology Admission Diagnosis Unstable angina Non-ST elevation myocardial infarction Coronary artery disease Hypertension Assessment/Plan Chest pain, nonspecific etiology- resolved. Underwent cardiac catheterization yesterday secondary to elevated troponin revealing nonobstructive diseasea Elevated troponin, type II [place], likely due to severe hypertension Severe hypertension, hypertensive urgency. Started on beta juve and Norvasc. Continue to monitor. Plan to add RUSS-I if BP continues to be elevated. Family history of atherosclerosis hyperlipidemia, mildly elevated LDL, continue to monitor. History of marijuana use. Educated on avoiding marijuana Clinical Quality Measures DVT/VTE Risk/Contraindication: RFS Level Per Nursing on Admit: 1=Low/No VTE PPX MELL BELLA May 25, 2019 08:58 POS
--- NOTE | 2019-05-25 11:52 | Discharge Summary ---
Diagnosis/Chief Complaint Date of Admission May 24, 2019 at 04:42 Date of Discharge 05/25/19 Admission Diagnosis Admission Diagnosis See problem list Discharge Diagnosis See below Problems/Diagnosis: (1) Chest pain Assessment & Plan: - Cardiology consulted, appreciate recommendations, Echo normal, trending troponin 05/25: Cardiac workup neg, Maximize medical management of HTN, Patient desires so ACEI/ARB are CI Qualifiers: Qualified Codes: R07.9 - Chest pain, unspecified Status: Acute (2) NSTEMI (non-ST elevated myocardial infarction) Assessment & Plan: - Patient 2nd CE was elevated and patient had Cath that was normal, Discussed with Dr Avila and he believes that this is demand ischemia related to elevated blood pressure Status: Acute (3) Hypertension Assessment & Plan: - Started on meds, continue to monitor blood pressure, if controlled in AM will plan to d/c home tomorrow with close f.u Qualifiers: Qualified Codes: I10 - Essential (primary) hypertension Status: Acute (4) Tetrahydrocannabinol (THC) use disorder, mild, abuse Assessment & Plan: - Discussed the need for cessation Status: Acute Chief Complaint/HPI Chief Complaint/HPI 28 yo F that presented to ER with chest pain. States that it started today when she was up walking around. Never had anything like this before. Pain improved in ER with rest and nitro. Cardiology was consulted from ER. + family history of CAD. Denies any other medical problems. Discharge Summary-Simple/Stand Procedures Cath: Showed normal Coronary vessels Consultations Dr Avila: Cardiology Discharge Physical Examination Allergies: Coded Allergies: No Known Drug Allergies (Unverified , 11/20/10) Vitals & I&Os Vital Sign - Last 12Hours Date Time Temp Pulse Resp B/P (MAP) Pulse Ox O2 Delivery O2 Flow Rate FiO2 05/25/19 08:15 Room Air 05/25/19 07:27 36.2 70 18 155/104 (121) 99 Intake and Output 05/25/19 00:00 Intake Total 1000 ml Output Total 300 ml Balance 700 ml General Appearance: Alert, Oriented X3, Cooperative, No Acute Distress HEENT: Mucous Memb Moist/Jessie Respiratory: Clear to Auscultation, Normal Air Movement Cardiovascular: Regular Rate, No Murmurs Abdominal: Normal Bowel Sounds, Soft, No Tenderness, No Masses Extremities: No Edema, No Tenderness/Swelling Skin: No Rashes, No Breakdown, Other (Incision C/D/I, no bulge) Neuro: Strength at 5/5 X4 Ext, Sensation Intact, Cranial Nerves 3-12 NL Psych/Mental Status: Mental Status NL, Mood NL Hospital Course Was the Problem List Reviewed?: Yes See final discharge diagnosis. Discussion & Recommendations 28 yo F that was found to have elevated troponin and taken to lab courier. Coronary vessels clean. Elevation is likely 2/2 to uncontrolled HTN. Aggressive medical management of blood pressure stressed. Will have close f.u with cardiology and patient encouraged to establish with new PCP. Would like to follow with myself. Will have f.u with Rosmery Lujan and then will need establish appt with Dr Prince. Discharge Condition at discharge Stable Instructions to patient/family Please see electronic discharge instructions given to patient. Discharge Medications Reviewed and agree with Discharge Medication list on patient's Discharge Instruction sheet Clinical Quality Measures DVT/VTE Risk/Contraindication: RFS Level Per Nursing on Admit: 1=Low/No VTE PPX Copy Copies To 1: JUANA PRINCE MD, HOLLY R MD May 25, 2019 11:52 POS
[2019-05-25 11:53] VITALS: BP 138/95
[2019-05-25] MEDS ORDERED: ASPI-983 PO (11:55)
[2019-05-25] MEDS ORDERED: AMLO5TAB9 PO (11:55)
[2019-05-25] MEDS ORDERED: METO-387 PO (11:55)
--- NOTE | 2019-05-25 11:56 | NUR ---
CM/SS visited patient to assess for needs upon discharge. Plan: The patient is to return home. CM/SS called Katerina who has already seen patient and assisting her with a financial service application. Summary: The patient stated that she is getting help with finances and does not have any other needs at this time. Patient to discharge today.
--- NOTE | 2019-05-25 11:57 | Discharge Instructions ---
Discharge [facility] Reconcile Patient Problems Problems Reviewed?: Yes Discharge Medications New, Converted or Re-Newed RX: Transmitted to Pharmacy New Medications: Amlodipine Besylate (Amlodipine Besylate) 5 Mg Tablet 5 MG PO DAILY, #30 TAB Aspirin (Aspirin EC) 81 Mg Tablet.dr 81 MG PO DAILY, #30 TAB Metoprolol Succinate (Metoprolol Succinate) 25 Mg Tab.er.24h 25 MG PO DAILY, #30 TAB Patient Instructions Goal/Follow Up Appt: You have a f.u appt with Rosmery Lujan (Dr Prince's ATTORNEY) on ThursdayMay 30 @ 2PM Patient Instructions: - Make sure to take your medications - Take blood pressure daily and record and bring to your appt Activity & Diet Discharge Diet: Cardiac Diet Activity as Tolerated: Yes Copy Copies To 1: JUANA PRINCE MD, HOLLY R MD May 25, 2019 11:57 POS
[2019-05-25 12:45] VITALS: BP 135/98
== END 2019-05-25 12:45 | disposition home or self-care (01) | DRG 282 ==
LOC: EDUNIT# 02:09 → ER 02:11 → 4TH 04:42
PROVIDERS: ADMIT Family Medicine; ATTEND Family Medicine
PROC: 4A023N7 Measurement of Cardiac Sampling and Pressure, Left Heart, Percutaneous Approach (ICD-10-PCS; principal; 2019-05-24)
PROC: B2111ZZ Fluoroscopy of Multiple Coronary Arteries using Low Osmolar Contrast (ICD-10-PCS; 2019-05-24)
PROC: B2151ZZ Fluoroscopy of Left Heart using Low Osmolar Contrast (ICD-10-PCS; 2019-05-24)
PROC: B3101ZZ Fluoroscopy of Thoracic Aorta using Low Osmolar Contrast (ICD-10-PCS; 2019-05-24)
PROC: B41B1ZZ Fluoroscopy of Other Intra-Abdominal Arteries using Low Osmolar Contrast (ICD-10-PCS; 2019-05-24)
DX: I21.A1 Myocardial infarction type 2 (principal); I10 Essential (primary) hypertension; F12.10 Cannabis abuse, uncomplicated; F41.9 Anxiety disorder, unspecified; F32.9 Major depressive disorder, single episode, unspecified; Z82.49 Family history of ischemic heart disease and other diseases of the circulatory system
CPT/HCPCS: 36221; 36415; 71046; 75625; 80048; 80053; 80061; 80306; 80320; 83036; 83735; 83874; 84484; 84703; 85025; 85027; 85379; 85610; 85730; 93005; 93041; 93306; 93458

== ENCOUNTER 2022-06-14 15:35 | Emergency (ER) | payer SELFPAY ==
[~2022-06-14] VITALS: Ht 154.9 cm; Wt 65.8 kg
[~2022-06-14 15:35] MED LIST changes: +AMLO-250 PO; +ASPI-1238 PO; +MTP25TSR PO
[2022-06-14 16:13] LABS: BILIRUBIN,URINE NEGATIVE (NEGATIVE); CLARITY,URINE CLEAR; COLOR,URINE YELLOW; GLUCOSE, URINE (UA) NEGATIVE (NEGATIVE); KETONES,URINE NEGATIVE (NEGATIVE); LEUKOCYTE ESTERASE ,URINE 1+ (NEGATIVE); NITRITE,URINE NEGATIVE (NEGATIVE); PROTEIN,URINE NEGATIVE (NEGATIVE)
[2022-06-14 16:17] LABS: BACTERIA,URINE TRACE /HPF; SQUAMOUS EPITHELIAL CELL,UR RARE /HPF
--- NOTE | 2022-06-14 16:32 | ED General ---
General Chief Complaint: Abdominal/GI Problems Stated Complaint: RIGHT SIDE ABD/BACK PAIN Nursing Triage Note: PT AMBULATE TO ROOM 03 WITHOUT DIFFICULTY WITH C/O BILAT LOWER BACK PAIN X2 DAYS AND RIGHT LOWER ABD PAIN STARTING YESTERDAY. PT REPORT VOMITING X1 THIS MORNING. PT DENIES NAUSEA UPON ARRIVAL. Source of Information: Patient Exam Limitations: No Limitations (GUNNAR ZHANG) History of Present Illness Date Seen by Provider: Jun 14, 2022 Time Seen by Provider: 16:10 Initial Comments This is a 31yo F with pmhx of HTN not currently on regular medications who presents with b/l low back pain for the past 4 days which is dull, constant and worsening, currently 8/10. Endorses RLQ abdominal pain that comes and goes since [id number] on [id number]. Low back and abdominal pain both had a gradual onset. Laying on her side makes the pain worse. Patient was able to drink water this morning, eat last night, and last bowel movement yesterday. Pt denies dysuria, suprapubic tenderness, change in urinary frequency, change in bowel movement quality, NVD, SOB, chest pain. No reported surgical history including abdominal surgeries. Patient does endorse regular marijuana use, denies tobacco use, drinks 2pints of whiskey per week, and used Valium yesterday which is not prescribed to the patient. Patient had menstruation last week, is sexually active, and denies vaginal discharge, vaginal pain, or dyspareunia. Reports that she did have an ovarian cyst rupture in past, but this pain is more intense Timing/Duration: 3-4 Days Severity: Moderate Associated Systoms: Nausea/Vomiting (Endorses one episode of vomiting, denies nausea) (GUNNAR ZHANG) Allergies and Home Medications Allergies Coded Allergies: No Known Drug Allergies (Unverified , 11/20/10) Patient Home Medication List Amlodipine Besylate (Amlodipine Besylate) 5 Mg Tablet, 5 MG PO DAILY Prescribed by: JUANA SAMANIEGO on 05/25/19 1155 Aspirin (Aspirin EC) 81 Mg Tablet.dr, 81 MG PO DAILY Prescribed by: JUANA SAMANIEGO on 05/25/19 1155 Metoprolol Succinate (Metoprolol Succinate) 25 Mg Tab.er.24h, 25 MG PO DAILY Prescribed by: JUANA SAMANIEGO on 05/25/19 1155 Review of Systems Review of Systems Constitutional: no symptoms reported EENTM: no symptoms reported Respiratory: no symptoms reported Cardiovascular: no symptoms reported Gastrointestinal: abdominal pain (RLQ); No constipation, No diarrhea, No dysphagia, No hematemesis, No heartburn, No nausea; vomiting Genitourinary: No discharge, No dysuria, No frequency, No hematuria, No incontinence, No nocturia, No pain Musculoskeletal: no symptoms reported Skin: no symptoms reported Psychiatric/Neurological: No Symptoms Reported (GUNNAR ZHANG) Past Fijzodk-Bxonav-Tamxju Hx Patient Social History Tobacco Use?: No Smoking Status: Never a Smoker Smokeless Tobacco Frequency: Never a User Use of E-Cig and/or Vaping dev: No Use of E-Cig and/or Vaping Matias: Never a User Substance use?: Yes Substance type: Misuse of prescript meds (Valium, not patient's prescription), Marijuana Additional substance use comme: VALIUM Substance frequency: Couple times a week Alcohol Use?: Yes Alcohol type: Hard Liquor (2 pints of whiskey per week) Alcohol Frequency: Daily Pt feels they are or have been: No (GUNNAR ZHANG) Immunizations Up To Date Tetanus Booster (TDap): Less than 5yrs (GUNNAR ZHANG) Seasonal Allergies Seasonal Allergies: No (GUNNAR ZHANG) Past Medical History Surgeries: No Respiratory: No Cardiac: No Neurological: No Reproductive Disorders: No Female Reproductive Disorders: Denies Genitourinary: No Gastrointestinal: No Musculoskeletal: No Endocrine: No HEENT: No Cancer: No Psychosocial: Yes Anxiety, Depression Integumentary: No Blood Disorders: No Adverse Reaction/Blood Tranf: No (GUNNAR ZHANG) Family Medical History Heart Disease (GUNNAR ZHANG) Physical Exam Vital Signs Vital Signs - First Documented 06/14/22 15:46 Temp 36.8 Pulse 116 Resp 19 B/P (MAP) 172/119 (136) O2 Delivery Room Air (ARIELLE,DASH K DO) Vital Signs Capillary Refill : Less Than 3 Seconds (GUNNAR ZHANG) Height, Weight, BMI Height: 5'1.00" Weight: 135lbs. oz. 61.415314fv; 27.00 BMI Method:Stated General Appearance: No Apparent Distress, WD/WN HEENT: PERRL/EOMI, TMs Normal, Normal ENT Inspection, Pharynx Normal Neck: Full Range of Motion, Normal Inspection, Non Tender, Supple Respiratory: Chest Non Tender, Lungs Clear, Normal Breath Sounds, No Accessory Muscle Use, No Respiratory Distress Cardiovascular: No Edema, No Murmur, Tachycardia (Tachycardic (HR 113) and Hypertensive (BP 172/119)) Gastrointestinal: Normal Bowel Sounds, No Organomegaly, No Pulsatile Mass, Tenderness (RLQ and RUQ abdominal tenderness with palpation, positive suprapubic tenderness) Back: Normal Inspection, No CVA Tenderness, No Vertebral Tenderness Extremity: Normal Capillary Refill, Normal Inspection, Normal Range of Motion, Non Tender, No Calf Tenderness, No Pedal Edema Neurologic/Psychiatric: Alert, Oriented x3, No Motor/Sensory Deficits, Normal Mood/Affect Skin: Normal Color, Warm/Dry Lymphatic: No Adenopathy (GUNNAR ZHANG) Progress/Results/Core Measures Suspected Sepsis SIRS Temperature: Pulse: 116 Respiratory Rate: 19 Laboratory Tests 06/14/22 16:58: White Blood Count 7.4 Blood Pressure 172 /119 Mean: 136 Laboratory Tests 06/14/22 16:58: Creatinine 0.79, Platelet Count 304, Total Bilirubin 0.5 (GUNNAR ZHANG) Results/Orders Lab Results Laboratory Tests Test 06/14/22 15:46 06/14/22 16:58 Range/Units Urine Color YELLOW Urine Clarity CLEAR Urine pH 8.0 5-9 Urine Specific [place] 1.020 1.016-1.022 Urine Protein NEGATIVE NEGATIVE Urine Glucose (UA) NEGATIVE NEGATIVE Urine Ketones NEGATIVE NEGATIVE Urine Nitrite NEGATIVE NEGATIVE Urine Bilirubin NEGATIVE NEGATIVE Urine Urobilinogen 0.2 < = 1.0 MG/DL Urine Leukocyte Esterase 1+ H NEGATIVE Urine RBC (Auto) 1+ H NEGATIVE Urine RBC 2-5 H /HPF Urine WBC 5-10 H /HPF Urine Squamous Epithelial Cells RARE /HPF Urine Crystals NONE /LPF Urine Bacteria TRACE /HPF Urine Casts NONE /LPF Urine Mucus SMALL H /LPF Urine Culture Indicated YES White Blood Count 7.4 4.3-11.0 10^3/uL Red Blood Count 4.71 3.80-5.11 10^6/uL Hemoglobin 14.4 11.5-16.0 g/dL Hematocrit 42 35-52 % Mean Corpuscular Volume 89 80-99 fL Mean Corpuscular Hemoglobin 31 25-34 pg Mean Corpuscular Hemoglobin Concent 34 32-36 g/dL Red Cell Distribution Width 12.9 10.0-14.5 % Platelet Count 304 130-400 10^3/uL Mean Platelet Volume 9.9 9.0-12.2 fL Immature Granulocyte % (Auto) 0 % Neutrophils (%) (Auto) 79 H 42-75 % Lymphocytes (%) (Auto) 13 12-44 % Monocytes (%) (Auto) 7 0-12 % Eosinophils (%) (Auto) 0 0-10 % Basophils (%) (Auto) 1 0-10 % Neutrophils # (Auto) 5.9 1.8-7.8 10^3/uL Lymphocytes # (Auto) 0.9 L 1.0-4.0 10^3/uL Monocytes # (Auto) 0.5 0.0-1.0 10^3/uL Eosinophils # (Auto) 0.0 0.0-0.3 10^3/uL Basophils # (Auto) 0.0 0.0-0.1 10^3/uL Immature Granulocyte # (Auto) 0.0 0.0-0.1 10^3/uL Sodium Level 138 135-145 MMOL/L Potassium Level 3.4 L 3.6-5.0 MMOL/L Chloride Level 104 98-107 MMOL/L Carbon Dioxide Level 22 21-32 MMOL/L Anion Gap 12 5-14 MMOL/L Blood Urea Nitrogen 6 L 7-18 MG/DL Creatinine 0.79 0.60-1.30 MG/DL Estimat Glomerular Filtration Rate 102 BUN/Creatinine Ratio 8 Glucose Level 96 70-105 MG/DL Calcium Level 9.2 8.5-10.1 MG/DL Corrected Calcium 8.9 8.5-10.1 MG/DL Total Bilirubin 0.5 0.1-1.0 MG/DL Aspartate Amino Transf (AST/SGOT) 27 5-34 U/L Alanine Aminotransferase (ALT/SGPT) 28 0-55 U/L Alkaline Phosphatase 80 40-136 U/L C-Reactive Protein High Sensitivity 3.34 H 0.00-0.50 MG/DL Total Protein 7.2 6.4-8.2 GM/DL Albumin 4.4 3.2-4.5 GM/DL Serum Test, Qualitative NEGATIVE NEGATIVE (DASH GUZMÁN DO) My Orders Orders - DASH GUZMÁN DO Ct Abd/Pelvis Wo(Kidney Stone) (06/14/22 18:04) Ketorolac Injection (Toradol Injection) (06/14/22 20:04) Drug Screen Stat (Urine) (06/14/22 20:04) (DASH GUZMÁN DO) Vital Signs/I&O 06/14/22 15:46 Temp 36.8 Pulse 116 Resp 19 B/P (MAP) 172/119 (136) O2 Delivery Room Air (DASH GUZMÁN DO) Vital Signs/I&O Capillary Refill : Less Than 3 Seconds (GUNNAR ZHANG) Blood Pressure Mean: 136 Progress Note : Progress Note 1800--ASSUMED CARE OF PT AT SHIFT CHANGE. ULTRASOUND IS PENDING. PT STATES HER PAIN IS IN HER LOWER BACK, AND STARTED IN HER RIGHT LOWER BACK, AND RADIATES TO RIGHT LOWER QUADRANT. WILL ADD CT SCAN WELL. PT IS SITTING TRINIDADIAN-STYLE AND TEXTING ON HER PHONE AT THIS TIME. SHE DOES NOT APPEAR TO BE IN ANY DISCOMFORT OR DISTRESS. SHE WALKS UPRIGHT AND MOVES WITHOUT DIFFICULTY. (DASH GUZMÁN DO) Progress Note : Time: 17:50 Progress Note Patient was interviewed and examined by me personally along with medical students. She was found to have right upper quadrant and right lower quadrant abdominal pain. She was not requiring any medications at the time of my examination. Work-up was initiated with labs and urinalysis. She had minimal RBC and WBC in her urine. There was no significant elevation in serum WBC or CRP to suggest infectious process such as appendicitis. However, ovarian pathology such as cyst or torsion cannot be ruled out. Ultrasound has been ordered. Because she additionally has right upper quadrant pain and tenderness, gallbladder ultrasound was included. Care of this patient has been transitioned to Dr. GUZMÁN at this time. Patient was informed ultrasound studies are pending. (BLAYNE DE LEON MD) Diagnostic Imaging Comments CT ABDOMEN/PELVIS--PER RADIOLOGIST REPORT AT 1833 COMPARISON: None available. FINDINGS: The visualized lung bases are clear. The unenhanced liver and spleen are unremarkable. The adrenal glands are unremarkable. The pancreas is unremarkable. The gallbladder is unremarkable. The bilateral kidneys and ureters are unremarkable. No aneurysmal dilatation of the abdominal aorta. The appendix is unremarkable. Small focus of gas is noted within the urinary bladder. Otherwise, the urinary bladder is unremarkable. The uterus and adnexal structures are unremarkable for age. No bowel obstruction or pneumatosis. No significant adenopathy, free air or free fluid within the abdomen or pelvis. No acute osseous abnormality. IMPRESSION: Punctate locule of gas within the urinary bladder. This could relate to infection or gas forming organism within the bladder, though recent instrumentation would be an additional consideration. Recommend correlation with urinary analysis. No renal or ureteral calculi. Additional findings as described above. PELVIC ULTRASOUND--PER RADIOLOGIST REPORT AT 2019 FINDINGS: The uterus is within normal limits in size. No focal uterine mass. Endometrium measures 0.6 cm, which is within normal limits. The bilateral ovaries are within normal limits in size with small follicles present within the bilateral ovaries. Vascular flow is present within the bilateral ovaries. No significant free fluid. IMPRESSION: Unremarkable examination without acute abnormality. ABDOMINAL ULTRASOUND--PER RADIOLOGIST REPORT AT 2033 FINDINGS: The liver is normal in size, shape and echo texture. Portal vein shows normal hepatopetal flow. There are no focal lesions. No intra or extrahepatic biliary dilatation is present. The common bile duct is not dilated and measures 5 mm. Gallbladder is visualized. Several small gallstones are noted. There is no gallbladder wall thickening or pericholecystic free fluid. The visualized portions of the head and proximal body of the pancreas are within normal limits. The distal body and tail of the pancreas are not visualized due to overlying bowel gas. There is no ascites. The right kidney measures approximately 9.7 cm in length and has a normal appearance. The visualized portions of the IVC and aorta are normal. IMPRESSION: Cholelithiasis, but no sonographic evidence of acute cholecystitis. Reviewed: Reviewed by Me (DASH GUZMÁN DO) Departure Impression Primary Impression: Abdominal pain Additional Impressions: Cholelithiasis UTI (urinary tract infection) Disposition: 01 HOME, SELF-CARE Condition: Stable Departure-Patient Inst. Decision time for Depature: 20:35 (DASH GUZMÁN DO) Referrals: [facility] (PCP/Family) Primary Care Physician ALEJANDRO RODRÍGUEZ DO Patient Instructions: Gallstones (DC), Urinary Tract Infection, Adult ED Add. Discharge Instructions: CLEAR LIQUIDS--WATER, BROTH, JELLO, GATORADE BRATS DIET--BANANAS, RICE, APPLESAUCE, TOAST, SALTINES FOLLOW UP WITH DR. RODRÍGUEZ NEXT WEEK FOR FURTHER EVALUATION OF GALLSTONES FOLLOW UP WITH [facility] [place] FURTHER EVALUATION OF UTI CALL ON THURSDAY TO SCHEDULE APPOINTMENTS RETURN TO ER IF SYMPTOMS WORSEN All discharge instructions reviewed with patient and/or family. Voiced understanding. Scripts Pantoprazole Sodium (Protonix) 40 Mg Tablet.dr 40 MG PO DAILY, #15 TAB Prov: DASH GUZMÁN DO 06/14/22 Ondansetron (Ondansetron Odt) 4 Mg Tab.rapdis 4 MG PO Q4H for Nausea/Vomiting, #10 TAB Prov: DASH GUZMÁN DO 06/14/22 Dicyclomine HCl (Dicyclomine HCl) 20 Mg Tablet 20 MG PO Q6H for Abdominal Pain, #20 TAB Prov: DASH GUZÁMN DO 06/14/22 Hyoscyamine Sulfate (Levsin-Sl) 0.125 Mg Tab.subl 0.25 MG SL Q4H, #10 TAB Prov: DASH GUZMÁN DO 06/14/22 Cefdinir (Cefdinir) 300 Mg Capsule 300 MG PO BID, #20 CAP Prov: DASH GUZMÁN DO 06/14/22 Medical Student Attestation and Attending Note: I have personally interviewed and examined this patient along with Gunnar Zhang, MS 4. I have reviewed student documentation including history, physical, and assessments. I agree with the documentation except where otherwise noted. Exam: General: Alert, oriented, no acute distress, well developed HEENT: Normocephalic and atraumatic Heart: Regular rate and rhythm without murmur Lungs: Clear to auscultation bilaterally with normal effort Abdomen: Soft, mild tenderness to percussion in the right lower quadrant and right upper quadrant. Moderate tenderness to palpation in the right upper quadrant and right lower quadrant. Nondistended, normal bowel sounds Neuropsych: Alert, oriented, no focal deficits Skin: Warm and dry without rashes (BLAYNE DE LEON MD) GUNNAR ZHANG Jun 14, 2022 16:32 DASH GUZMÁN Jun 14, 2022 18:07 BLAYNE DE LEON MD Jun 14, 2022 18:16
[2022-06-14 17:12] LABS: BASOPHILS % (AUTO) 1 % (0-10); EOSINOPHILS % (AUTO) 0 % (0-10); HEMATOCRIT 42 % (35-52); HEMOGLOBIN 14.4 g/dL (11.5-16.0); LYMPHOCYTES # (AUTO) 0.9 10^3/uL (1.0-4.0); LYMPHOCYTES % (AUTO) 13 % (12-44); MEAN CORPUSCULAR HEMOGLOBIN 31 pg (25-34); MEAN CORPUSCULAR HGB CONC 34 g/dL (32-36); MEAN CORPUSCULAR VOLUME 89 fL (80-99); MEAN PLATELET VOLUME 9.9 fL (9.0-12.2); MONOCYTES # (AUTO) 0.5 10^3/uL (0.0-1.0); MONOCYTES % (AUTO) 7 % (0-12); NEUTROPHILS # (AUTO) 5.9 10^3/uL (1.8-7.8); NEUTROPHILS % (AUTO) 79 % (42-75); PLATELET COUNT 304 10^3/uL (130-400); WHITE BLOOD COUNT 7.4 10^3/uL (4.3-11.0)
[2022-06-14 17:14] LABS: ALBUMIN 4.4 GM/DL (3.2-4.5); POTASSIUM 3.4 MMOL/L (3.6-5.0)
[2022-06-14 17:15] LABS: CALCIUM 9.2 MG/DL (8.5-10.1)
[2022-06-14 17:17] LABS: TOTAL PROTEIN 7.2 GM/DL (6.4-8.2)
[2022-06-14 17:18] LABS: BILIRUBIN,TOTAL 0.5 MG/DL (0.1-1.0)
[2022-06-14 17:20] LABS: CREATININE SERUM 0.79 MG/DL (0.60-1.30)
--- NOTE | 2022-06-14 18:30 | Diagnostic Imaging Report ---
PROCEDURE: CT urinary tract, rule out kidney stone. TECHNIQUE: Multiple contiguous axial images were obtained through the abdomen and pelvis without the use of intravenous contrast. Auto Exposure Controls were utilized during the CT exam to meet ALARA standards for radiation dose reduction. INDICATION: Pain. COMPARISON: None available. FINDINGS: The visualized lung bases are clear. The unenhanced liver and spleen are unremarkable. The adrenal glands are unremarkable. The pancreas is unremarkable. The gallbladder is unremarkable. The bilateral kidneys and ureters are unremarkable. No aneurysmal dilatation of the abdominal aorta. The appendix is unremarkable. Small focus of gas is noted within the urinary bladder. Otherwise, the urinary bladder is unremarkable. The uterus and adnexal structures are unremarkable for age. No bowel obstruction or pneumatosis. No significant adenopathy, free air or free fluid within the abdomen or pelvis. No acute osseous abnormality. IMPRESSION: Punctate locule of gas within the urinary bladder. This could relate to infection or gas forming organism within the bladder, though recent instrumentation would be an additional consideration. Recommend correlation with urinary analysis. No renal or ureteral calculi. Additional findings as described above. Dictated by: Dictated on workstation # [id number]
[2022-06-14] MEDS ORDERED: KETOROLAC 30 MG/ML VIAL IVP STA (20:04)
--- NOTE | 2022-06-14 20:06 | Diagnostic Imaging Report ---
PROCEDURE: US Non-OB pelvis comp/trans. TECHNIQUE: Multiple realtime grayscale images were obtained of the pelvis in various projections, endovaginally. Transabdominal imaging was also performed. INDICATION: Pain. COMPARISON: CT from the same date. FINDINGS: The uterus is within normal limits in size. No focal uterine mass. Endometrium measures 0.6 cm, which is within normal limits. The bilateral ovaries are within normal limits in size with small follicles present within the bilateral ovaries. Vascular flow is present within the bilateral ovaries. No significant free fluid. IMPRESSION: Unremarkable examination without acute abnormality. Dictated by: Dictated on workstation # [id number]
--- NOTE | 2022-06-14 20:30 | Diagnostic Imaging Report ---
PROCEDURE: US Gallbladder. TECHNIQUE: Multiple real-time grayscale images were obtained over the right upper quadrant in various projections. INDICATION: Right lower quadrant abdominal pain. COMPARISON: None. FINDINGS: The liver is normal in size, shape and echo texture. Portal vein shows normal hepatopetal flow. There are no focal lesions. No intra or extrahepatic biliary dilatation is present. The common bile duct is not dilated and measures 5 mm. Gallbladder is visualized. Several small gallstones are noted. There is no gallbladder wall thickening or pericholecystic free fluid. The visualized portions of the head and proximal body of the pancreas are within normal limits. The distal body and tail of the pancreas are not visualized due to overlying bowel gas. There is no ascites. The right kidney measures approximately 9.7 cm in length and has a normal appearance. The visualized portions of the IVC and aorta are normal. IMPRESSION: Cholelithiasis, but no sonographic evidence of acute cholecystitis. Dictated by: Dictated on workstation # [id number]
[2022-06-14] MEDS ORDERED: RX-DICYCLOMINE 10 MG (BENTYL) CAP PPK#4 PO STA (20:40)
[2022-06-14] MEDS ORDERED: RX-HYOSCYAMINE 0.125 MG SL (LEVSIN) PPK#6 SL STA ×2 (20:40→20:52)
[2022-06-14] MEDS ORDERED: CEFD300C3 PO (20:42)
[2022-06-14] MEDS ORDERED: ONDA4TAB11 PO (20:42)
[2022-06-14] MEDS ORDERED: HYOS0.1283 SL (20:42)
[2022-06-14] MEDS ORDERED: PANT40TA2 PO (20:42)
[2022-06-14] MEDS ORDERED: DICY20TA PO (20:42)
[2022-06-14] MEDS ORDERED: cefTRIAXone 1 GM PRE-MIX 50 ML IV ONE (20:45)
[2022-06-14] MEDS ORDERED: PANTOPRAZOLE 40 MG (PROTONIX) VIAL IV ONE (20:45)
[2022-06-14] MEDS ORDERED: RX-CEFDINIR 300 MG CAP PPK #2 PO SCH (21:00)
[2022-06-14 21:07] LABS: AMPHETAMINE SCREEN, URINE NEGATIVE (NEGATIVE); BARBITURATE SCREEN URINE NEGATIVE (NEGATIVE); BENZODIAZEPINES SCREEN URINE POSITIVE (NEGATIVE); CANNABINOID SCREEN, URINE POSITIVE (NEGATIVE); COCAINE SCREEN URINE NEGATIVE (NEGATIVE); METHADONE STAT NEGATIVE (NEGATIVE); OPIATE SCREEN URINE NEGATIVE (NEGATIVE); OXYCODONE STAT NEGATIVE (NEGATIVE); PROPOXYPHENE STAT NEGATIVE (NEGATIVE); TRICYCLIC ANTIDEPRESSANTS SCRE NEGATIVE (NEGATIVE)
[2022-06-14 21:18] VITALS: BP 132/74
== END 2022-06-14 21:18 | disposition home or self-care (01) ==
LOC: EDUNIT# 15:35 → ER 15:39
DX: N39.0 Urinary tract infection, site not specified (principal); K80.20 Calculus of gallbladder without cholecystitis without obstruction; Z32.02 Encounter for pregnancy test, result negative; Z28.310 Unvaccinated for COVID-19
CPT/HCPCS: 36415; 74176; 76705; 76830; 76856; 80053; 80306; 81000; 84703; 85025; 86141; 87088; 96374; 96375; 99283